=== PATIENT | female | born 1985 | race American Indian/Alaskan Native ===

== ENCOUNTER 2017-03-08 22:37 | Emergency (ER) | payer MEDICAID ==
[2017-03-08 22:44] VITALS: BP 100/62; PULSE 94; RESP 18; TEMP 97.6; O2SAT 97
--- NOTE | 2017-03-08 23:30 | C.PDOC ---
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 Patient states her chest pain has now since resolved; she reports she has with twin gestation and feels the babies moving. Denies fever, chills, nausea, or vomiting. Time Seen by Provider: 03/08/17 23:16 Chief Complaint (Nursing): Lower Extremity Problem/Injury History Per: Patient History/Exam Limitations: no limitations Onset/Duration Of Symptoms: Hrs Current Symptoms Are (Timing): Still Present Recent travel outside of the [place]: No Past Medical History Reviewed: Historical Data, Nursing Documentation, Vital Signs Vital Signs: Last Vital Signs Temp 97.6 F 03/08/17 22:42 Pulse 94 H 03/08/17 22:42 Resp 18 03/08/17 22:42 BP 100/62 03/08/17 22:42 Pulse Ox 97 03/09/17 00:22 - Medical History PMH: Anemia Surgical History: No Surg Hx Family History: States: Unknown Family Hx - Social History Hx Tobacco Use: No Hx Alcohol Use: No Hx Substance Use: No - Immunization History Hx Tetanus Toxoid Vaccination: No Hx Influenza Vaccination: No Hx Pneumococcal Vaccination: No Review Of Systems Except As Marked, All Systems Reviewed And Found Negative. Constitutional: Negative for: Fever, Chills Gastrointestinal: Negative for: Nausea, Vomiting Musculoskeletal: Positive for: Leg Pain (Bilateral) Physical Exam - Physical Exam Appears: Non-toxic, No Acute Distress Skin: Normal Color, Warm, Dry Head: Atraumatic, Normacephalic Oral Mucosa: Moist Chest: Symmetrical, No Tenderness Cardiovascular: Rhythm Regular, No Murmur Respiratory: Normal Breath Sounds, No Rales, No Rhonchi, No Wheezing Gastrointestinal/Abdominal: Soft, No Tenderness Extremity: Normal ROM, No Tenderness Neurological/Psych: Oriented x3, Normal Speech, Normal Cognition ED Course And Treatment O2 Sat by Pulse Oximetry: 97 (Room air) Pulse Ox Interpretation: Normal Against Medical Advice - AMA Patient Left Against Medical Advice: The patient declines admission to the hospital and wishes to leave the Emergency Department. This action is against my medical advice. This decision was made with informed refusal. The patient was told that admission to the hospital is necessary. Explanation of the reasons why were discussed. The risks of leaving were explained to the patient and include, but are not limited to, worsening of known or currently unknown conditions, permanent disability and from undiagnosed or untreated conditions. The patient has the capacity to make this informed decision and understands my explanation of the current medical problem and risks of leaving. The patient voluntarily accepts these risks and signed an AMA form documenting our conversation. The patient was given the opportunity to ask questions and reconsider. The patient was encouraged to return to the Emergency Department at any time for further care. Medical Decision Making Medical Decision Making: Impression: 31 year old female with bilateral leg pain/cp. intially requested w/ u to include anemia, blast crisis, dvt,/pe, pain crisis. upon ordeirng labs. pt now states she needs to return to her other child, declines any w/u in er. signs ama. explained extensively at bedside, that pt will need w/u and labs, and possible imaging. pt declines, states he cp is now resolved. Patient is refusing work up in ER, she states she needs to go home to take care of her child. Will sign out AMA. Disposition - Disposition Disposition: AGAINST MEDICAL ADVICE Disposition Time: 11:00 Condition: UNKNOWN Additional Instructions: please follow up with your doctor. return to er with worsneing symptoms or concenrs. you are leaving against medical advice you are able to return at any time wiht any concern. Instructions: Chest Pain (ED), Sickle Cell Crisis (DC), Against Medical Advice (ED), Leg Pain (ED) - Clinical Impression Clinical Impression: Chest pain, Leg pain, Sickle cell anemia - Scribe Statement The provider has reviewed the documentation as recorded by the Pradeepibmalena Ulloa All medical record entries made by the Pradeepibmalena were at my direction and personally dictated by me. I have reviewed the chart and agree that the record accurately reflects my personal performance of the history, physical exam, medical decision making, and the department course for this patient. I have also personally directed, reviewed, and agree with the discharge instructions and disposition.
== END 2017-03-08 23:42 | disposition left against medical advice (07) ==
LOC: C.ER 22:37
DX: M79.605 Pain in left leg (principal); M79.604 Pain in right leg; R07.9 Chest pain, unspecified; D57.1 Sickle-cell disease without crisis